=== PATIENT | female | born 1950 | race Caucasian/White ===

== ENCOUNTER 2017-12-12 18:08 | Inpatient (IN) | payer OTHER, MEDICAID ==
[~2017-12-12] VITALS: Ht 165.1 cm; Wt 67.2 kg
[2017-12-12] MEDS ORDERED: MORPHINE SULF INJ 2 MG/ML SYRINGE 1ML IV ONE (18:15)
[2017-12-12] MEDS ORDERED: HEPARIN IN NS 1000U/500ML (2UNIT/ML) 500 ML BAG/KIT IV ONE (18:15)
[2017-12-12] MEDS ORDERED: ONDANSETRON HCL 4 MG/2 ML VIAL IV ONE (18:15)
[2017-12-12] MEDS ORDERED: HEPARIN SODIUM (PORCINE) 5000 UNITS/ML 1ML VIAL ONE ×2 (18:16→18:17)
[2017-12-12] MEDS ORDERED: LORazepam 2MG/ML-1ML VIAL IV ONE (18:30)
[2017-12-12 18:35] LABS: Lymphocytes # (auto) 1.9 uL
[2017-12-12 18:36] LABS: Basophils # (auto) 0.2 uL; Basophils % (auto) 1.4 % (0.0-2.0); Eosinophils # (auto) 1.3 uL; Eosinophils % (auto) 8.1 % (0.0-7.0); Hematocrit 28.2 % (36.0-46.0); Hemoglobin 9.2 g/dL (12.2-16.2); Lymphocytes % (auto) 11.6 % (10.0-50.0); Mean Corpuscular Hemoglobin 27.8 pg (28.0-32.0); Mean Corpuscular Hgb Conc. 32.8 g/dL (32.0-36.0); Mean Corpuscular Volume 84.7 fL (80.0-100.0); Neutrophils # (auto) 11.7 uL; Neutrophils % (auto) 72.9 % (37.0-80.0); Platelet Count (auto) 452 10^3/uL (140-450); Red Blood Cells 3.32 10^6/uL (4.0-5.20); Red Cell Distribution Width 17.6 % (11.8-14.3)
[2017-12-12] MEDS ORDERED: HEPARIN SODIUM (PORCINE) 5000 UNITS/ML 1ML VIAL IV ONE (18:45)
[2017-12-12 18:51] LABS: INR 1.64 (0.9-1.15); Partial Thromboplastin Time 46.6 sec (23.78-33.04); Prothrombin Time 17.1 sec (9.27-12.13)
[2017-12-12 18:54] LABS: Albumin 2.6 g/dL (3.4-5.0); Bilirubin, Total 0.4 mg/dL (0.2-1.0); Calcium 8.2 mg/dL (8.5-10.1); Magnesium 2.3 mg/dL (1.6-2.6); Potassium 3.6 mmol/L (3.5-5.1); Total Protein 7.2 g/dL (6.4-8.2)
[2017-12-12] MEDS ORDERED: NITROGLYCERIN 0.4 MG SL TAB SL PRN (19:15)
[2017-12-12] MEDS ORDERED: VANCOMYCIN PER PHARMACY 0 MG IV SCH (19:15)
[2017-12-12] MEDS ORDERED: PIPERACILLIN-TAZOB 3.375GM 100 ML IV ONE (19:15)
[2017-12-12] MEDS ORDERED: LACTULOSE 20Gm/30ML SOLN PO PRN (19:15)
[2017-12-12] MEDS ORDERED: MORPHINE SULF INJ 2 MG/ML SYRINGE 1ML IV PRN (19:15)
[2017-12-12] MEDS ORDERED: PROMETHAZINE HCL 25 MG/ML 1ML IV PRN (19:15)
[2017-12-12] MEDS: ENALAPRIL MALEATE 10 MG TAB PO SCH (19:29)
[2017-12-12] MEDS: PANTOPRAZOLE 40 MG TAB PO SCH (19:30)
[2017-12-12] MEDS: POTASSIUM CHL 20 Meq TABLET PO SCH (19:30)
[2017-12-12] MEDS ORDERED: ASPirin 81 mg TAB PO ONE (19:30)
[2017-12-12] MEDS: FUROSEMIDE 40 MG/4 ML VIAL IV SCH (19:33)
[2017-12-12 20:42] VITALS: BP 126/71
[2017-12-12] MEDS ORDERED: AZITHROMYCIN 500MG/ 250ML 250 ML IV ONE (21:00)
[2017-12-12] MEDS: ATORVASTATIN 20 MG TAB PO SCH (21:41)
[2017-12-12] MEDS: CARVEDILOL 3.125 MG TAB PO SCH (21:41)
[2017-12-12 22:00] VITALS: BP 126/71
[2017-12-12] MEDS: RIVAROXABAN 15 MG TAB PO SCH (22:31)
[2017-12-12] MEDS: PIPERACILLIN-TAZOB 3.375GM 100 ML IV SCH (23:48)
[2017-12-13] MEDS: MORPHINE SULFATE 4 MG/ML SYR/VIAL IV PRN ×3 (02:41→20:32)
[2017-12-13] MEDS: HYDROcodone-ACET 5/325MG TAB PO PRN ×3 (04:33→22:05)
[2017-12-13 05:30] VITALS: BP 141/69
[2017-12-13] MEDS: PIPERACILLIN-TAZOB 3.375GM 100 ML IV SCH ×3 (06:31→19:57)
[2017-12-13] MEDS: FUROSEMIDE 40 MG/4 ML VIAL IV SCH ×2 (06:33→19:57)
[2017-12-13 07:42] LABS: Basophils # (auto) 0.2 uL; Neutrophils # (auto) 9.7 uL
[2017-12-13 07:45] LABS: Basophils % (auto) 1.4 % (0.0-2.0); Eosinophils # (auto) 0.9 uL; Eosinophils % (auto) 6.9 % (0.0-7.0); Hematocrit 25.1 % (36.0-46.0); Mean Corpuscular Hemoglobin 27.5 pg (28.0-32.0); Mean Corpuscular Hgb Conc. 31.9 g/dL (32.0-36.0); Mean Corpuscular Volume 86.1 fL (80.0-100.0); Monocytes # (auto) 0.6 uL; Monocytes % (auto) 4.5 % (0.0-12.0); Neutrophils % (auto) 72.2 % (37.0-80.0); Platelet Count (auto) 404 10^3/uL (140-450); Red Blood Cells 2.92 10^6/uL (4.0-5.20); Red Cell Distribution Width 17.6 % (11.8-14.3); White Blood Cell 13.5 10^3/uL (4.4-10.8)
[2017-12-13 07:58] LABS: Albumin 2.3 g/dL (3.4-5.0); BUN/Creatinine Ratio 12.8; Bilirubin, Total 0.4 mg/dL (0.2-1.0); Calcium 7.7 mg/dL (8.5-10.1); Potassium 3.6 mmol/L (3.5-5.1); Total Protein 6.5 g/dL (6.4-8.2)
[2017-12-13 09:03] VITALS: BP 109/78
[2017-12-13] MEDS: NITROGLYCERIN 0.2MG/HR TOPICAL PATCH TD SCH (10:00)
[2017-12-13] MEDS: ENALAPRIL MALEATE 10 MG TAB PO SCH (10:00)
[2017-12-13] MEDS ORDERED: AZITHROMYCIN 500MG/ 250ML 250 ML IV SCH (10:00)
[2017-12-13] MEDS: POTASSIUM CHL 20 Meq TABLET PO SCH (10:40)
[2017-12-13] MEDS: CARVEDILOL 3.125 MG TAB PO SCH ×2 (10:40→21:57)
[2017-12-13] MEDS: PANTOPRAZOLE 40 MG TAB PO SCH (10:41)
[2017-12-13] MEDS: ASPirin 81 mg TAB PO SCH (10:41)
[2017-12-13 13:00] VITALS: BP 108/67
[2017-12-13 17:23] VITALS: BP 105/68
[2017-12-13] MEDS: RIVAROXABAN 15 MG TAB PO SCH (19:58)
[2017-12-13 22:00] VITALS: BP 127/65
[2017-12-13] MEDS: ATORVASTATIN 20 MG TAB PO SCH (22:04)
[2017-12-13] MEDS: TEMAZEPAM 15 MG CAP PO PRN (22:53)
[2017-12-14] MEDS: PIPERACILLIN-TAZOB 3.375GM 100 ML IV SCH ×4 (01:15→18:52)
[2017-12-14] MEDS: FUROSEMIDE 40 MG/4 ML VIAL IV SCH ×2 (05:30→18:51)
[2017-12-14] MEDS: HYDROcodone-ACET 5/325MG TAB PO PRN ×3 (05:30→18:53)
[2017-12-14 05:31] VITALS: BP 100/51
[2017-12-14 07:45] LABS: Hematocrit 27.8 % (36.0-46.0); Hemoglobin 8.9 g/dL (12.2-16.2); Mean Corpuscular Hemoglobin 27.4 pg (28.0-32.0); Mean Corpuscular Hgb Conc. 32.1 g/dL (32.0-36.0); Mean Corpuscular Volume 85.6 fL (80.0-100.0); Platelet Count (auto) 437 10^3/uL (140-450); Red Blood Cells 3.25 10^6/uL (4.0-5.20); Red Cell Distribution Width 17.6 % (11.8-14.3); White Blood Cell 13.7 10^3/uL (4.4-10.8)
[2017-12-14 07:59] LABS: Band Neutrophils % (manual) 0; Basophils % (manual) 0 (0.0-2.0); Blast Cells 0; Metamyelocytes % 0; Myelocytes % 0; Promyelocytes % 0; Reactive Lymphocytes 0
[2017-12-14 08:06] LABS: BUN/Creatinine Ratio 11.9; Calcium 8.5 mg/dL (8.5-10.1); Potassium 3.9 mmol/L (3.5-5.1)
[2017-12-14] MEDS ORDERED: hydrOXYzine 25 MG TAB or CAP PO PRN (08:30)
[2017-12-14 08:35] VITALS: BP 111/62
[2017-12-14] MEDS: MORPHINE SULFATE 4 MG/ML SYR/VIAL IV PRN ×3 (08:46→20:28)
[2017-12-14] MEDS: POTASSIUM CHL 20 Meq TABLET PO SCH (08:47)
[2017-12-14] MEDS: CARVEDILOL 3.125 MG TAB PO SCH ×2 (08:47→22:24)
[2017-12-14] MEDS: ENALAPRIL MALEATE 10 MG TAB PO SCH (08:47)
[2017-12-14] MEDS: ASPirin 81 mg TAB PO SCH (08:47)
[2017-12-14] MEDS: PANTOPRAZOLE 40 MG TAB PO SCH (08:47)
[2017-12-14] MEDS: NITROGLYCERIN 0.2MG/HR TOPICAL PATCH TD SCH (08:48)
[2017-12-14 09:00] VITALS: BP 131/74
[2017-12-14] MEDS ORDERED: SERTRALINE HCL 50 MG TAB PO SCH (10:00)
[2017-12-14] MEDS ORDERED: methylPREDNISolone SOD SUCC 40 MG/ML VL IV SCH (12:00)
[2017-12-14 12:11] VITALS: BP 111/62
[2017-12-14 13:56] LABS: Eosinophils % (manual) 22 (0-7); Lymphocytes % (manual) 16 (10.0-50.0); Monocytes % (manual) 2 (0-12)
[2017-12-14 16:32] VITALS: BP 107/65
[2017-12-14] MEDS: SERTRALINE HCL 50 MG TAB PO SCH (18:51)
[2017-12-14] MEDS: RIVAROXABAN 15 MG TAB PO SCH (18:52)
[2017-12-14 21:57] VITALS: BP 131/96
[2017-12-14] MEDS: ATORVASTATIN 20 MG TAB PO SCH (22:24)
[2017-12-14] MEDS: TEMAZEPAM 15 MG CAP PO PRN (22:24)
[2017-12-15] MEDS: PIPERACILLIN-TAZOB 3.375GM 100 ML IV SCH ×2 (00:39→06:00)
[2017-12-15] MEDS: MORPHINE SULFATE 4 MG/ML SYR/VIAL IV PRN ×2 (01:53→09:05)
[2017-12-15] MEDS: LORazepam 0.5 MG TAB PO PRN (03:24)
[2017-12-15 05:00] VITALS: BP 140/71
[2017-12-15 05:45] LABS: Hemoglobin 8.8 g/dL (12.2-16.2); Mean Corpuscular Hgb Conc. 32.5 g/dL (32.0-36.0); Red Blood Cells 3.18 10^6/uL (4.0-5.20); Red Cell Distribution Width 17.4 % (11.8-14.3)
[2017-12-15 05:48] LABS: Hematocrit 27.1 % (36.0-46.0); Mean Corpuscular Hemoglobin 27.7 pg (28.0-32.0); Mean Corpuscular Volume 85.1 fL (80.0-100.0); Platelet Count (auto) 453 10^3/uL (140-450); White Blood Cell 14.3 10^3/uL (4.4-10.8)
[2017-12-15 05:53] LABS: Band Neutrophils % (manual) 0; Basophils % (manual) 0 (0.0-2.0); Blast Cells 0; Metamyelocytes % 0; Myelocytes % 0; Promyelocytes % 0; Reactive Lymphocytes 0
[2017-12-15] MEDS: FUROSEMIDE 40 MG/4 ML VIAL IV SCH ×2 (06:00→17:35)
[2017-12-15 06:11] LABS: BUN/Creatinine Ratio 11.5; Calcium 8.7 mg/dL (8.5-10.1); Potassium 3.9 mmol/L (3.5-5.1)
[2017-12-15] MEDS ORDERED: ADENOSINE 54 MG in GIVE UN-DILUTED 0 ML IV STA (08:28)
[2017-12-15 08:49] VITALS: BP 144/71
[2017-12-15 09:45] LABS: Eosinophils % (manual) 20 (0-7); Lymphocytes % (manual) 12 (10.0-50.0); Monocytes % (manual) 7 (0-12)
[2017-12-15 10:01] VITALS: BP 148/78
[2017-12-15] MEDS ORDERED: POTA-165 PO (11:56)
[2017-12-15] MEDS ORDERED: DILT60TA27 PO (12:00)
[2017-12-15] MEDS ORDERED: FURO40TA4 PO (12:00)
[2017-12-15] MEDS ORDERED: ATOR80TA PO (12:00)
[2017-12-15] MEDS ORDERED: DOCU-80 PO (12:00)
[2017-12-15] MEDS ORDERED: METO-158 PO (12:00)
[2017-12-15] MEDS ORDERED: NIC21P TOP (12:00)
[2017-12-15] MEDS ORDERED: HYDR-4683 PO (12:00)
[2017-12-15] MEDS ORDERED: ASPI-498 PO (12:00)
[2017-12-15] MEDS ORDERED: AMIO200T33 PO (12:00)
[2017-12-15] MEDS: SERTRALINE HCL 50 MG TAB PO SCH (12:33)
[2017-12-15] MEDS: POTASSIUM CHL 20 Meq TABLET PO SCH (12:33)
[2017-12-15] MEDS: HYDROcodone-ACET 10/325MG TAB PO PRN ×2 (12:33→19:56)
[2017-12-15] MEDS: ASPirin 81 mg TAB PO SCH (12:33)
[2017-12-15] MEDS: CARVEDILOL 3.125 MG TAB PO SCH ×2 (12:34→22:03)
[2017-12-15] MEDS: ENALAPRIL MALEATE 10 MG TAB PO SCH (12:34)
[2017-12-15] MEDS: PANTOPRAZOLE 40 MG TAB PO SCH (12:34)
[2017-12-15 13:00] VITALS: BP 146/83
[2017-12-15 17:00] VITALS: BP 125/48
[2017-12-15] MEDS: RIVAROXABAN 15 MG TAB PO SCH (17:35)
[2017-12-15 21:32] VITALS: BP 116/75
[2017-12-15] MEDS: ATORVASTATIN 20 MG TAB PO SCH (22:04)
[2017-12-16 05:00] VITALS: BP 149/93
[2017-12-16 05:30] LABS: Urine Bacteria FEW /hpf (None Seen); Urine Blood Negative /uL (Negative); Urine Hyaline Cast FEW /lpf (0 - 2); Urine Specific Gravity 1.012 (1.001-1.035); Urine WBC 1 /hpf (0 - 5)
[2017-12-16] MEDS: FUROSEMIDE 40 MG/4 ML VIAL IV SCH ×2 (05:46→10:00)
[2017-12-16] MEDS: HYDROcodone-ACET 10/325MG TAB PO PRN ×3 (06:53→20:01)
[2017-12-16 07:25] LABS: Hemoglobin 9.7 g/dL (12.2-16.2); Red Cell Distribution Width 17.4 % (11.8-14.3); White Blood Cell 13.3 10^3/uL (4.4-10.8)
[2017-12-16 07:27] LABS: Hematocrit 29.6 % (36.0-46.0); Mean Corpuscular Hemoglobin 27.2 pg (28.0-32.0); Mean Corpuscular Hgb Conc. 32.7 g/dL (32.0-36.0); Mean Corpuscular Volume 83.3 fL (80.0-100.0); Platelet Count (auto) 510 10^3/uL (140-450); Red Blood Cells 3.56 10^6/uL (4.0-5.20)
[2017-12-16 07:41] LABS: BUN/Creatinine Ratio 13.9; Band Neutrophils % (manual) 0; Basophils % (manual) 0 (0.0-2.0); Blast Cells 0; Calcium 8.9 mg/dL (8.5-10.1); Metamyelocytes % 0; Myelocytes % 0; Potassium 3.5 mmol/L (3.5-5.1); Promyelocytes % 0; Reactive Lymphocytes 0
[2017-12-16 09:12] VITALS: BP 103/60
[2017-12-16 09:38] LABS: Eosinophils % (manual) 17 (0-7); Lymphocytes % (manual) 13 (10.0-50.0); Monocytes % (manual) 11 (0-12)
[2017-12-16] MEDS: PANTOPRAZOLE 40 MG TAB PO SCH (09:43)
[2017-12-16] MEDS: POTASSIUM CHL 20 Meq TABLET PO SCH (09:44)
[2017-12-16] MEDS: SERTRALINE HCL 50 MG TAB PO SCH (09:44)
[2017-12-16] MEDS: ASPirin 81 mg TAB PO SCH (09:44)
[2017-12-16] MEDS: ENALAPRIL MALEATE 10 MG TAB PO SCH (09:46)
[2017-12-16] MEDS: CARVEDILOL 3.125 MG TAB PO SCH ×2 (09:46→21:51)
[2017-12-16 13:28] VITALS: BP 112/53
[2017-12-16] MEDS: RIVAROXABAN 15 MG TAB PO SCH (17:53)
[2017-12-16 17:57] VITALS: BP 147/76
[2017-12-16 21:48] VITALS: BP 127/77
[2017-12-16] MEDS: ATORVASTATIN 20 MG TAB PO SCH (21:50)
[2017-12-16] MEDS: MORPHINE SULFATE 4 MG/ML SYR/VIAL IV PRN (21:52)
[2017-12-17 04:39] VITALS: BP 124/67
[2017-12-17] MEDS: HYDROcodone-ACET 10/325MG TAB PO PRN ×2 (04:53→16:15)
[2017-12-17 06:22] LABS: Mean Corpuscular Volume 84.5 fL (80.0-100.0)
[2017-12-17 06:24] LABS: Hematocrit 28.5 % (36.0-46.0); Hemoglobin 9.4 g/dL (12.2-16.2); Mean Corpuscular Hemoglobin 27.8 pg (28.0-32.0); Mean Corpuscular Hgb Conc. 32.9 g/dL (32.0-36.0); Platelet Count (auto) 478 10^3/uL (140-450); Red Blood Cells 3.37 10^6/uL (4.0-5.20); Red Cell Distribution Width 17.8 % (11.8-14.3); White Blood Cell 10.9 10^3/uL (4.4-10.8)
[2017-12-17 06:27] LABS: Band Neutrophils % (manual) 0; Basophils % (manual) 0 (0.0-2.0); Blast Cells 0; Metamyelocytes % 0; Myelocytes % 0; Promyelocytes % 0; Reactive Lymphocytes 0
[2017-12-17 06:50] LABS: Potassium 3.7 mmol/L (3.5-5.1)
[2017-12-17 06:52] LABS: BUN/Creatinine Ratio 15.3
[2017-12-17 07:34] LABS: Eosinophils % (manual) 29 (0-7); Lymphocytes % (manual) 26 (10.0-50.0); Monocytes % (manual) 10 (0-12)
[2017-12-17 08:57] VITALS: BP 144/78
[2017-12-17] MEDS: FUROSEMIDE 40 MG/4 ML VIAL IV SCH (10:13)
[2017-12-17] MEDS: POTASSIUM CHL 20 Meq TABLET PO SCH (10:14)
[2017-12-17] MEDS: ASPirin 81 mg TAB PO SCH (10:14)
[2017-12-17] MEDS: PANTOPRAZOLE 40 MG TAB PO SCH (10:14)
[2017-12-17] MEDS: ENALAPRIL MALEATE 10 MG TAB PO SCH (10:15)
[2017-12-17] MEDS: SERTRALINE HCL 50 MG TAB PO SCH (10:15)
[2017-12-17] MEDS: CARVEDILOL 3.125 MG TAB PO SCH ×2 (10:16→22:12)
[2017-12-17] MEDS ORDERED: diphenhdrAMINE HCL 25 MG CAP PO PRN (11:00)
[2017-12-17 12:49] VITALS: BP 110/59
[2017-12-17 17:32] VITALS: BP 112/62
[2017-12-17] MEDS: RIVAROXABAN 15 MG TAB PO SCH (18:13)
[2017-12-17] MEDS: LORazepam 0.5 MG TAB PO PRN (20:19)
[2017-12-17 21:30] VITALS: BP 116/58
[2017-12-17] MEDS: ATORVASTATIN 20 MG TAB PO SCH (22:12)
[2017-12-17] MEDS: TEMAZEPAM 15 MG CAP PO PRN (22:13)
[2017-12-18 05:00] VITALS: BP 102/58
[2017-12-18 06:38] LABS: INR 1.41 (0.9-1.15); Partial Thromboplastin Time 40.8 sec (23.78-33.04); Prothrombin Time 14.8 sec (9.27-12.13)
[2017-12-18 08:24] VITALS: BP 110/61
[2017-12-18] MEDS: HYDROcodone-ACET 10/325MG TAB PO PRN ×2 (08:59→15:38)
[2017-12-18] MEDS: FUROSEMIDE 40 MG TAB PO SCH (10:00)
[2017-12-18] MEDS: POTASSIUM CHL 20 Meq TABLET PO SCH (10:00)
[2017-12-18] MEDS: ASPirin 81 mg TAB PO SCH (10:04)
[2017-12-18] MEDS: ENALAPRIL MALEATE 10 MG TAB PO SCH (10:04)
[2017-12-18] MEDS: PANTOPRAZOLE 40 MG TAB PO SCH (10:04)
[2017-12-18] MEDS: CARVEDILOL 3.125 MG TAB PO SCH ×2 (10:04→21:52)
[2017-12-18] MEDS: SERTRALINE HCL 50 MG TAB PO SCH (10:06)
[2017-12-18] MEDS ORDERED: IOHEXOL 350 MG/ML 100ML IJ ONE (12:16)
[2017-12-18] MEDS ORDERED: LIDOCAINE 2%HCL (LOCAL ANESTH.) INJ 10ml MDV ONE (12:16)
[2017-12-18] MEDS ORDERED: IODIXANOL 320MG/ML 100ML BTL IV ONE (12:25)
[2017-12-18] MEDS ORDERED: fentaNYL CITRATE 100 MCG/2 ML VL ONE (12:32)
[2017-12-18] MEDS ORDERED: ANGIOMAX 250 MG VIAL IV ONE (12:32)
[2017-12-18] MEDS ORDERED: MIDAZOLAM HCL 1MG/1ML-2 ML VIAL ONE (12:33)
[2017-12-18] MEDS ORDERED: SODIUM CHL 0.9% 50 ML ONE (12:33)
[2017-12-18 12:58] VITALS: BP 100/59
[2017-12-18] MEDS ORDERED: CLOPIDOGREL 300 MG TAB ONE (13:12)
[2017-12-18 16:57] VITALS: BP 126/72
[2017-12-18] MEDS: LORazepam 0.5 MG TAB PO PRN (17:37)
[2017-12-18] MEDS: RIVAROXABAN 15 MG TAB PO SCH (17:38)
[2017-12-18] MEDS: MORPHINE SULFATE 4 MG/ML SYR/VIAL IV PRN (19:47)
[2017-12-18] MEDS: ATORVASTATIN 20 MG TAB PO SCH (21:53)
[2017-12-18 22:18] VITALS: BP 122/59
[2017-12-19] MEDS: MORPHINE SULFATE 4 MG/ML SYR/VIAL IV PRN ×2 (00:12→05:17)
[2017-12-19 05:21] VITALS: BP 110/77
[2017-12-19] MEDS: HYDROcodone-ACET 10/325MG TAB PO PRN ×2 (06:35→13:08)
[2017-12-19 08:47] VITALS: BP 101/51
[2017-12-19 09:09] LABS: BUN/Creatinine Ratio 15.6; Calcium 8.9 mg/dL (8.5-10.1); Potassium 4.1 mmol/L (3.5-5.1)
[2017-12-19] MEDS: ASPirin 81 mg TAB PO SCH (10:39)
[2017-12-19] MEDS: PANTOPRAZOLE 40 MG TAB PO SCH (10:39)
[2017-12-19] MEDS: FUROSEMIDE 40 MG TAB PO SCH (10:40)
[2017-12-19] MEDS: ENALAPRIL MALEATE 10 MG TAB PO SCH (10:40)
[2017-12-19] MEDS: SERTRALINE HCL 50 MG TAB PO SCH (10:41)
[2017-12-19] MEDS: CARVEDILOL 3.125 MG TAB PO SCH ×2 (10:41→21:51)
[2017-12-19] MEDS: POTASSIUM CHL 20 Meq TABLET PO SCH (10:41)
[2017-12-19] MEDS: ACETAMINOPHEN 500 MG TAB PO PRN ×2 (10:47→17:45)
[2017-12-19 13:00] VITALS: BP 119/64
[2017-12-19] MEDS ORDERED: MORPHINE SULF INJ 2 MG/ML SYRINGE 1ML IV PRN (14:45)
[2017-12-19] MEDS: LORazepam 0.5 MG TAB PO PRN (15:40)
[2017-12-19 16:19] LABS: Urine Amorphous Crystal FEW /hpf (None Seen); Urine Bacteria NONE SEEN /hpf (None Seen); Urine Blood Negative /uL (Negative); Urine Mucus FEW (None Seen); Urine Specific Gravity 1.008 (1.001-1.035); Urine WBC <1 /hpf (0 - 5)
[2017-12-19 17:05] VITALS: BP 107/67
[2017-12-19] MEDS: RIVAROXABAN 15 MG TAB PO SCH (17:41)
[2017-12-19] MEDS: ATORVASTATIN 20 MG TAB PO SCH (21:51)
[2017-12-19] MEDS: MORPHINE SULF INJ 2 MG/ML SYRINGE 1ML IV PRN (21:52)
[2017-12-19 22:01] VITALS: BP 123/64
[2017-12-20] MEDS: ACETAMINOPHEN 500 MG TAB PO PRN ×2 (01:38→11:48)
[2017-12-20] MEDS: LORazepam 0.5 MG TAB PO PRN ×2 (01:59→17:56)
[2017-12-20 05:00] VITALS: BP 105/63
[2017-12-20] MEDS: HYDROcodone-ACET 10/325MG TAB PO PRN ×3 (06:01→22:11)
[2017-12-20 06:58] LABS: Basophils # (auto) 0.2 uL; Eosinophils # (auto) 1.7 uL; Lymphocytes # (auto) 2.1 uL; Monocytes # (auto) 0.9 uL
[2017-12-20 07:05] LABS: Basophils % (auto) 1.1 % (0.0-2.0); Eosinophils % (auto) 11.7 % (0.0-7.0); Hematocrit 28.2 % (36.0-46.0); Hemoglobin 9.2 g/dL (12.2-16.2); Lymphocytes % (auto) 14.5 % (10.0-50.0); Mean Corpuscular Hemoglobin 27.6 pg (28.0-32.0); Mean Corpuscular Hgb Conc. 32.6 g/dL (32.0-36.0); Mean Corpuscular Volume 84.8 fL (80.0-100.0); Neutrophils # (auto) 9.8 uL; Neutrophils % (auto) 66.7 % (37.0-80.0); Platelet Count (auto) 483 10^3/uL (140-450); Red Blood Cells 3.33 10^6/uL (4.0-5.20); Red Cell Distribution Width 17.6 % (11.8-14.3); White Blood Cell 14.7 10^3/uL (4.4-10.8)
[2017-12-20 07:23] LABS: BUN/Creatinine Ratio 15.2; Potassium 4.6 mmol/L (3.5-5.1)
[2017-12-20] MEDS ORDERED: SODIUM CHLORIDE 0.9% 1,000 ML IV ONE (08:15)
[2017-12-20] MEDS ORDERED: TEMAZEPAM 15 MG CAP PO PRN (08:15)
[2017-12-20] MEDS: PANTOPRAZOLE 40 MG TAB PO SCH (09:06)
[2017-12-20] MEDS: MORPHINE SULF INJ 2 MG/ML SYRINGE 1ML IV PRN ×2 (09:06→19:46)
[2017-12-20] MEDS: ASPirin 81 mg TAB PO SCH (09:08)
[2017-12-20] MEDS: CARVEDILOL 3.125 MG TAB PO SCH ×2 (09:08→22:00)
[2017-12-20] MEDS: SERTRALINE HCL 50 MG TAB PO SCH (09:09)
[2017-12-20 09:26] VITALS: BP 110/49
[2017-12-20 13:00] VITALS: BP 110/60
[2017-12-20 17:04] VITALS: BP 123/62
[2017-12-20] MEDS: RIVAROXABAN 15 MG TAB PO SCH (17:56)
[2017-12-20] MEDS: ATORVASTATIN 20 MG TAB PO SCH (22:05)
[2017-12-20 22:26] VITALS: BP 97/65
[2017-12-21] MEDS: HYDROcodone-ACET 10/325MG TAB PO PRN ×3 (04:34→20:24)
[2017-12-21 05:00] VITALS: BP 124/60
[2017-12-21 06:12] LABS: Hematocrit 24.9 % (36.0-46.0); Mean Corpuscular Hemoglobin 27.4 pg (28.0-32.0); Mean Corpuscular Hgb Conc. 32.3 g/dL (32.0-36.0); Platelet Count (auto) 426 10^3/uL (140-450); Red Blood Cells 2.93 10^6/uL (4.0-5.20); Red Cell Distribution Width 17.7 % (11.8-14.3); White Blood Cell 11.7 10^3/uL (4.4-10.8)
[2017-12-21 06:21] LABS: Band Neutrophils % (manual) 0; Basophils % (manual) 0 (0.0-2.0); Metamyelocytes % 0
[2017-12-21 06:22] LABS: Blast Cells 0; Myelocytes % 0; Promyelocytes % 0; Reactive Lymphocytes 0
[2017-12-21 06:28] LABS: BUN/Creatinine Ratio 16.5; Calcium 8.4 mg/dL (8.5-10.1); Potassium 4.5 mmol/L (3.5-5.1)
[2017-12-21 07:13] LABS: Eosinophils % (manual) 14 (0-7); Lymphocytes % (manual) 19 (10.0-50.0); Monocytes % (manual) 4 (0-12)
[2017-12-21 09:00] VITALS: BP 123/64
[2017-12-21 09:39] LABS: % Iron Saturation 5.2 % (15-50)
[2017-12-21] MEDS: PANTOPRAZOLE 40 MG TAB PO SCH (09:55)
[2017-12-21] MEDS: ASPirin 81 mg TAB PO SCH (09:55)
[2017-12-21] MEDS: CARVEDILOL 3.125 MG TAB PO SCH ×2 (09:55→21:22)
[2017-12-21] MEDS: SERTRALINE HCL 50 MG TAB PO SCH (09:55)
[2017-12-21] MEDS: MORPHINE SULF INJ 2 MG/ML SYRINGE 1ML IV PRN (09:56)
[2017-12-21 13:00] VITALS: BP 113/52
[2017-12-21] MEDS: SODIUM FERR GLUC 62.5MG/5ML 125 MG in SODIUM CHL 0.9% 100 ML IV SCH (13:23)
[2017-12-21] MEDS: LORazepam 0.5 MG TAB PO PRN ×2 (15:16→21:25)
[2017-12-21 17:00] VITALS: BP 98/64
[2017-12-21] MEDS: RIVAROXABAN 15 MG TAB PO SCH (17:40)
[2017-12-21] MEDS: AMPICILLIN INJ 500 MG in SODIUM CHL 0.9% 50 ML IV SCH ×2 (17:40→23:59)
[2017-12-21 20:00] VITALS: BP 138/71
[2017-12-21] MEDS: ATORVASTATIN 20 MG TAB PO SCH (21:22)
[2017-12-21 22:00] VITALS: BP 138/71
[2017-12-22] MEDS ORDERED: LORazepam 2MG/ML-1ML VIAL IV ONE (01:00)
[2017-12-22] MEDS: MORPHINE SULF INJ 2 MG/ML SYRINGE 1ML IV PRN (01:56)
[2017-12-22 05:47] VITALS: BP 130/66
[2017-12-22] MEDS: AMPICILLIN INJ 500 MG in SODIUM CHL 0.9% 50 ML IV SCH ×2 (06:00→12:38)
[2017-12-22] MEDS: HYDROcodone-ACET 10/325MG TAB PO PRN ×2 (07:05→13:46)
[2017-12-22 07:52] LABS: BUN/Creatinine Ratio 18.4; Calcium 8.9 mg/dL (8.5-10.1); Potassium 4.4 mmol/L (3.5-5.1)
[2017-12-22 08:00] VITALS: BP 132/55
[2017-12-22] MEDS: PANTOPRAZOLE 40 MG TAB PO SCH (10:36)
[2017-12-22] MEDS: ASPirin 81 mg TAB PO SCH (10:37)
[2017-12-22] MEDS: SERTRALINE HCL 50 MG TAB PO SCH (10:37)
[2017-12-22] MEDS: CARVEDILOL 3.125 MG TAB PO SCH (10:39)
[2017-12-22 12:13] VITALS: BP 132/55
[2017-12-22 13:00] VITALS: BP 105/77
[2017-12-22] MEDS: SODIUM FERR GLUC 62.5MG/5ML 125 MG in SODIUM CHL 0.9% 100 ML IV SCH (13:04)
[2017-12-22] MEDS: ACETAMINOPHEN 500 MG TAB PO PRN (16:13)
[2017-12-22 17:00] VITALS: BP 100/53
== END 2017-12-22 17:50 | DRG 853 ==
LOC: ER 18:08 → EDBD 18:08 → TELE 18:09 → TELE-CENTR 20:05
PROVIDERS: ADMIT Internal Medicine; ATTEND Internal Medicine
PROC: 037434Z Dilation of Left Subclavian Artery with Drug-eluting Intraluminal Device, Percutaneous Approach (ICD-10-PCS; principal; 2017-12-18)
PROC: B2161ZZ Fluoroscopy of Right and Left Heart using Low Osmolar Contrast (ICD-10-PCS; 2017-12-18)
PROC: B2111ZZ Fluoroscopy of Multiple Coronary Arteries using Low Osmolar Contrast (ICD-10-PCS; 2017-12-18)
PROC: B2131ZZ Fluoroscopy of Multiple Coronary Artery Bypass Grafts using Low Osmolar Contrast (ICD-10-PCS; 2017-12-18)
PROC: B3121ZZ Fluoroscopy of Left Subclavian Artery using Low Osmolar Contrast (ICD-10-PCS; 2017-12-18)
PROC: B2181ZZ Fluoroscopy of Left Internal Mammary Bypass Graft using Low Osmolar Contrast (ICD-10-PCS; 2017-12-18)
PROC: 4A023N7 Measurement of Cardiac Sampling and Pressure, Left Heart, Percutaneous Approach (ICD-10-PCS; 2017-12-18)
DX: A41.9 Sepsis, unspecified organism (principal); J18.9 Pneumonia, unspecified organism; I21.4 Non-ST elevation (NSTEMI) myocardial infarction; I50.43 Acute on chronic combined systolic (congestive) and diastolic (congestive) heart failure; J96.20 Acute and chronic respiratory failure, unspecified whether with hypoxia or hypercapnia; E44.0 Moderate protein-calorie malnutrition; F33.9 Major depressive disorder, recurrent, unspecified; N39.0 Urinary tract infection, site not specified; I42.9 Cardiomyopathy, unspecified; G45.8 Other transient cerebral ischemic attacks and related syndromes; I13.0 Hypertensive heart and chronic kidney disease with heart failure and stage 1 through stage 4 chronic kidney disease, or unspecified chronic kidney disease; J90 Pleural effusion, not elsewhere classified; Z88.6 Allergy status to analgesic agent; I25.10 Atherosclerotic heart disease of native coronary artery without angina pectoris; I73.9 Peripheral vascular disease, unspecified; N18.3 Chronic kidney disease, stage 3 (moderate); K57.90 Diverticulosis of intestine, part unspecified, without perforation or abscess without bleeding; D64.9 Anemia, unspecified; I48.0 Paroxysmal atrial fibrillation; J44.9 Chronic obstructive pulmonary disease, unspecified; E78.00 Pure hypercholesterolemia, unspecified; E78.5 Hyperlipidemia, unspecified; I71.4 Abdominal aortic aneurysm, without rupture; I70.8 Atherosclerosis of other arteries; F41.9 Anxiety disorder, unspecified; G89.29 Other chronic pain; Z87.891 Personal history of nicotine dependence; Z79.899 Other long term (current) drug therapy; Z95.1 Presence of aortocoronary bypass graft; Z98.61 Coronary angioplasty status; I25.2 Old myocardial infarction; Z88.2 Allergy status to sulfonamides
CPT/HCPCS: 36415; 37236; 70450; 71045; 74176; 75710; 76881; 78452; 80048; 80053; 80061; 81001; 82550; 82607; 83540; 83550; 83735; 83880; 84443; 84484; 85007; 85025; 85027; 85610; 85652; 85730; 86141; 86850; 86900; 86901; 87040; 87086; 87088; 87186; 93005; 93017; 93306; 93459; 93970; 94761; 96374; 96375; 97116; 97163; 99152; A6257; J0153; J2001; J2250; J2405; J2543; Q9967